=== PATIENT | female | born 1960 | race Caucasian/White ===

== ENCOUNTER 2018-05-10 10:38 | Emergency (ER) | payer OTHER ==
[2018-05-10] MEDS ORDERED: Cyclobenzaprine 10 MG Tab PO ONE (11:28)
[2018-05-10] MEDS ORDERED: fentaNYL 100 MCG/2 ML SDV IM ONE (11:28)
--- NOTE | 2018-05-10 11:31 | EDM.PDOC ---
ED HPI GENERAL MEDICAL PROBLEM - General Chief Complaint: Back Pain or Injury Stated Complaint: BACK PAIN Time Seen by Provider: 05/10/18 11:20 Source of Information: Reports: Patient, Family, RN Notes Reviewed History Limitations: Reports: No Limitations - History of Present Illness INITIAL COMMENTS - FREE TEXT/NARRATIVE: 57-year-old female presents to the emergency department day complaint of back pain, she has a known history of spinal stenosis underwent injections which did provide relief for several months, this particular event she bent over at which time she twisted exacerbation of pain on the left side shooting down into her foot does complain of numbness in her foot, also complains of urinary urgency at which time she has been incontinent of urine, but is not incontinent at this time. Also complains of constipation low back,left Pain Score (Numeric/FACES): 5 - Related Data Allergies Allergy/AdvReac Type Severity Reaction Status Date / Time aspirin [From Percodan] Allergy Hives Verified 05/10/18 11:00 ibuprofen Allergy Hives Verified 05/10/18 11:00 oxycodone [From Percodan] Allergy Hives Verified 05/10/18 11:00 Home Meds: Home Meds Acetaminophen [Tylenol Arthritis] 1,300 mg PO DAILY 05/10/18 [History] Atenolol 50 mg PO DAILY 05/10/18 [History] LORazepam 0.5 mg PO ASDIRECTED PRN 05/10/18 [History] Ondansetron [Zofran ODT] 4 mg PO ASDIRECTED PRN 05/10/18 [History] Sertraline [Zoloft] 150 mg PO BEDTIME 05/10/18 [History] Spironolactone 50 mg PO DAILY 05/10/18 [History] Past Medical History Cardiovascular History: Reports: Hypertension Musculoskeletal History: Reports: Back Pain, Chronic, Fibromyalgia Hematologic History: Reports: Blood Transfusion(s) - Past Surgical History HEENT Surgical History: Reports: Cataract Surgery, Tonsillectomy GI Surgical History: Reports: Cholecystectomy, Colonoscopy, EGD, Other (See Below) Other GI Surgeries/Procedures: Mary Jo Female Surgical History: Reports: Hysterectomy Musculoskeletal Surgical History: Reports: Carpal Tunnel Social & Family History - Tobacco Use Smoking Status *Q: Current Every Day Smoker Years of Tobacco use: 29 Packs/Tins Daily: 0.5 - Recreational Drug Use Recreational Drug Use: No ED ROS GENERAL - Review of Systems Review Of Systems: See Below Constitutional: Reports: No Symptoms Respiratory: Reports: No Symptoms Cardiovascular: Reports: No Symptoms GI/Abdominal: Reports: Constipation : Reports: Frequency Musculoskeletal: Reports: Back Pain Neurological: Reports: Numbness (Left foot) ED EXAM,LOWER BACK PAIN/INJURY - Physical Exam Exam: See Below Exam Limited By: No Limitations General Appearance: Alert, WD/WN, No Apparent Distress Respiratory/Chest: No Respiratory Distress Back Exam: Normal Inspection, Decreased Range of Motion, Muscle Spasm, Paraspinal Tenderness. No: CVA Tenderness (R), CVA Tenderness (L), Vertebral Tenderness Extremities: Normal Inspection, Normal Range of Motion, Non-Tender Course - Vital Signs Last Recorded V/S: Last Vital Signs Temp 97.4 F 05/10/18 11:06 Pulse 57 L 05/10/18 11:06 Resp 12 05/10/18 11:06 BP 134/82 05/10/18 11:06 Pulse Ox 98 05/10/18 11:06 - Orders/Labs/Meds Orders: Active Orders 24 hr Category Date Time Status UA W/MICROSCOPIC [URIN] Urgent Lab 05/10/18 12:40 Ordered Meds: Medications Discontinued Medications Generic Name Dose Route Start Last Admin Trade Name Freq PRN Reason Stop Dose Admin Cyclobenzaprine HCl 10 mg 05/10/18 11:28 05/10/18 11:55 Flexeril PO 05/10/18 11:29 10 mg ONETIME ONE Administration Fentanyl 50 mcg 05/10/18 11:28 05/10/18 11:56 Sublimaze IM 05/10/18 11:29 50 mcg ONETIME ONE Administration Departure - Departure Time of Disposition: 12:45 Disposition: Home, Self-Care 01 Condition: Fair Clinical Impression: Back pain - Discharge Information *PRESCRIPTION DRUG MONITORING PROGRAM REVIEWED*: Yes *COPY OF PRESCRIPTION DRUG MONITORING REPORT IN PATIENT JOVANNI: No Referrals: Astrid Godinez PA [Primary Care Provider] - Forms: ED Department Discharge, ED Return to Work/School Form Additional Instructions: Continue to use Advil as needed for pain control, use the morphine for breakthrough pain, use Flexeril as needed for muscle relaxant, please follow-up with your primary care provider in the next 1-2 days for reevaluation - My Orders Last 24 Hours: My Active Orders 05/10/18 12:40 UA W/MICROSCOPIC [URIN] Urgent - Assessment/Plan Last 24 Hours: My Active Orders 05/10/18 12:40 UA W/MICROSCOPIC [URIN] Urgent Plan: Assessment Acuity = acute on chronic Site and laterality = low back pain complicated patient with known history of spinal stenosis Etiology = unknown etiology Manifestations = none Location of injury = Home Lab values = none Plan She had good improvement combination Flexeril and fentanyl, plan is discharge home with morphine sulfate 10 mg 1 tab by mouth every 6 hours total #10 also Flexeril 10 mg by mouth 3 times a day when necessary total #10 she needs follow- up with her primary care the next 1-2 days for reevaluation This note was dictated using [employer] voice recognition software please call with any questions on syntax or grammar.
== END 2018-05-10 12:57 | disposition home or self-care (01) ==
LOC: JP.ED 10:38
DX: M54.5 Low back pain (principal); G89.29 Other chronic pain; F17.210 Nicotine dependence, cigarettes, uncomplicated; I10 Essential (primary) hypertension; Z79.899 Other long term (current) drug therapy; Z88.6 Allergy status to analgesic agent
CPT/HCPCS: 81001; 96374; 99284; A9270; J3010